=== PATIENT | female | born 1935 | race Caucasian/White ===

== ENCOUNTER 2016-10-10 21:43 | Inpatient (IN) | payer OTHER, BC ==
[~2016-10-10] VITALS: Ht 170.2 cm; Wt 40.8 kg
[~2016-10-10 21:43] MED LIST: ARMOUR THYROID120 MG PO; ARMOUR THYROID30 MG PO; BENADRYL ALLERG25 M1 PO; CYMBALTA60 M1 PO; DETROL LA2 MG PO; FAMOTIDINE40 MG PO; FERROUS SULFAT325 M2 PO; HALDOL PO; MEGL PO; METOPROLOL SUCC25 M1 PO; METOPROLOL SUCC50 M2 PO; MOBIC7.5 MG PO; MULTI-VITAMINS1 TAB PO; NAMENDA10 M2 PO; NAMENDA10 M3 PO; PEPCID40 MG PO; TRAMADOL HCL50 MG PO; TYLENOL EXTRA500 M2 PO; XARELTO10 M1 PO; XARELTO20 M1 PO
[2016-10-10 22:32] LABS: BASOPHIL % 0.3 % (0-2); PLATELET COUNT 303 x10^3mcL (130-400); RED CELL DISTRIBUTION WIDTH 13.3 % (11.5-14.5)
[2016-10-10 22:39] LABS: CALCIUM 9.2 mg/dL (8.5-10.1); CARBON DIOXIDE 31.5 mmol/L (21-32); CHLORIDE SERUM 97 mmol/L (98-107); GLUCOSE SERUM 117 mg/dL (74-106); POTASSIUM SERUM 3.7 mmol/L (3.5-5.1); SODIUM SERUM 137 mmol/L (136-145)
[2016-10-10 22:44] LABS: ALBUMIN 3.6 g/dL (3.4-5.0); ALKALINE PHOSPHATASE 103 U/L (46-116); ALT/SGPT 20 U/L (14-59); AMYLASE 88 U/L (25-115); AST/SGOT 17 U/L (15-37); BILIRUBIN TOTAL 0.58 mg/dL (0.20-1.00); LIPASE 282 IU/L (73-393); TOTAL PROTEIN, SERUM 7.4 g/dL (6.4-8.2)
[2016-10-10 23:20] LABS: CK-MB 1.6 ng/mL (0-3.6)
[2016-10-10] MEDS ORDERED: NAMENDA10 M2 PO (23:25)
[2016-10-10] MEDS ORDERED: FAMOTIDINE40 MG PO (23:25)
[2016-10-10] MEDS ORDERED: TOPROL XL25 MG PO (23:25)
[2016-10-10] MEDS ORDERED: HALDOL DECA100 MG/ML IM (23:26)
[2016-10-10] MEDS ORDERED: ARMOUR THYROID30 MG PO (23:26)
[2016-10-10] MEDS ORDERED: OXYBUTYNIN CHLO10 MG PO (23:26)
[2016-10-10] MEDS ORDERED: CYMBALTA60 M1 PO (23:27)
[2016-10-11 00:17] VITALS: BP 132/65
[2016-10-11 00:21] VITALS: BP 132/65
[2016-10-11] MEDS ORDERED: MOM PO (00:56)
[2016-10-11 01:13] LABS: T3 TOTAL 1.06 ng/mL
[2016-10-11 01:17] LABS: MAGNESIUM 2.4 mg/dL (1.8-2.4); PHOSPHOROUS 3.9 mg/dL (2.5-4.9)
[2016-10-11 01:25] LABS: CHOLESTEROL/HDL RATIO 1.9
[2016-10-11 01:28] LABS: FREE T4 0.99 ng/dL (0.76-1.46); FREE THYROXINE INDEX 2.6 ug/dL (1.4-4.5); T4(THYROXINE) 7.7 ug/dL (4.7-13.3)
[2016-10-11 06:06] VITALS: BP 147/69
[2016-10-11 07:06] LABS: BASOPHIL % 0.3 % (0-2); PLATELET COUNT 294 x10^3mcL (130-400); RED CELL DISTRIBUTION WIDTH 13.6 % (11.5-14.5)
[2016-10-11 07:22] LABS: CALCIUM 8.2 mg/dL (8.5-10.1); CARBON DIOXIDE 27.9 mmol/L (21-32); CHLORIDE SERUM 101 mmol/L (98-107); CREATININE SERUM 0.8 mg/dL (0.6-1.0); GLUCOSE SERUM 87 mg/dL (74-106); MAGNESIUM 2.2 mg/dL (1.8-2.4); POTASSIUM SERUM 4.3 mmol/L (3.5-5.1); SODIUM SERUM 135 mmol/L (136-145)
[2016-10-11 08:32] VITALS: BP 151/61
[2016-10-11 13:05] VITALS: BP 127/49
[2016-10-11 23:10] VITALS: BP 115/52
[2016-10-12 05:37] VITALS: BP 113/62
[2016-10-12 07:01] LABS: BASOPHIL % 0.4 % (0-2); PLATELET COUNT 210 x10^3mcL (130-400); RED CELL DISTRIBUTION WIDTH 13.3 % (11.5-14.5)
[2016-10-12 07:32] LABS: CARBON DIOXIDE 20.6 mmol/L (21-32); CHLORIDE SERUM 108 mmol/L (98-107); CREATININE SERUM 0.7 mg/dL (0.6-1.0); GLUCOSE SERUM 82 mg/dL (74-106); POTASSIUM SERUM 3.9 mmol/L (3.5-5.1); SODIUM SERUM 136 mmol/L (136-145)
[2016-10-12 10:20] VITALS: BP 138/73
[2016-10-12 13:58] VITALS: BP 120/64
[2016-10-12 17:55] VITALS: BP 131/71
[2016-10-12 22:00] VITALS: BP 146/76
[2016-10-13 05:34] VITALS: BP 135/64
[2016-10-13 07:30] LABS: BASOPHIL % 0.6 % (0-2); PLATELET COUNT 237 x10^3mcL (130-400)
[2016-10-13 08:00] LABS: CALCIUM 8.6 mg/dL (8.5-10.1); CHLORIDE SERUM 102 mmol/L (98-107); CREATININE SERUM 0.6 mg/dL (0.6-1.0); GLUCOSE SERUM 83 mg/dL (74-106); POTASSIUM SERUM 3.4 mmol/L (3.5-5.1); SODIUM SERUM 134 mmol/L (136-145)
[2016-10-13 09:18] VITALS: BP 156/68
[2016-10-13] MEDS ORDERED: METOPROLOL TART25 M1 PO (11:07)
[2016-10-13] MEDS ORDERED: OMEPRAZOLE20 M4 PO (11:07)
[2016-10-13] MEDS ORDERED: ARMOUR THYROID30 MG PO (11:07)
[2016-10-13] MEDS ORDERED: MOM PO (11:07)
[2016-10-13 17:10] VITALS: BP 134/72
[2016-10-13 22:54] VITALS: BP 131/69
[2016-10-14 05:35] VITALS: BP 148/82
[2016-10-14 07:10] LABS: BASOPHIL % 0.4 % (0-2); PLATELET COUNT 274 x10^3mcL (130-400)
[2016-10-14 10:19] VITALS: BP 124/63
[2016-10-14 14:51] VITALS: BP 124/63
== END 2016-10-14 15:50 | DRG 368 ==
LOC: ED 21:43 → MU 23:03 → DU 23:03 → MU 10-13 04:54
PROVIDERS: Emergency Medicine; Family Medicine; Internal Medicine Gastroenterology; ADMIT Family Medicine
PROC: 0DB68ZX Excision of Stomach, Via Natural or Artificial Opening Endoscopic, Diagnostic (ICD-10-PCS; principal; 2016-10-11 12:00)
DX: K22.6 Gastro-esophageal laceration-hemorrhage syndrome (principal); N17.0 Acute kidney failure with tubular necrosis; Z68.1 Body mass index [BMI] 19.9 or less, adult; K44.9 Diaphragmatic hernia without obstruction or gangrene; G30.9 Alzheimer's disease, unspecified; F02.80 Dementia in other diseases classified elsewhere, unspecified severity, without behavioral disturbance, psychotic disturbance, mood disturbance, and anxiety; E87.6 Hypokalemia; K21.9 Gastro-esophageal reflux disease without esophagitis; M19.90 Unspecified osteoarthritis, unspecified site; E03.9 Hypothyroidism, unspecified; Z66 Do not resuscitate; Z96.651 Presence of right artificial knee joint; Z85.3 Personal history of malignant neoplasm of breast; Z90.11 Acquired absence of right breast and nipple
CPT/HCPCS: 43235; 83880; 84439; J1200; J1610; J2250; J2310; J2405; J2765; J3010; J3490; J7030; J7040

== ENCOUNTER 2017-09-10 20:49 | Inpatient (IN) | payer OTHER, BC ==
[~2017-09-10] VITALS: Ht 170.2 cm; Wt 47.7 kg
[~2017-09-10 20:49] MED LIST changes: +HALDOL DECA100 MG/ML IM; +METOPROLOL TART25 M1 PO; +MOM PO; +OMEPRAZOLE20 M4 PO; +OXYBUTYNIN CHLO10 MG PO; +TOPROL XL25 MG PO
[2017-09-10 22:17] LABS: BASOPHIL % 0.1 % (0-2); PLATELET COUNT 356 x10^3mcL (130-400); RED CELL DISTRIBUTION WIDTH 14.5 % (11.5-14.5)
[2017-09-10 22:26] LABS: CARBON DIOXIDE 30.5 mmol/L (21-32); CHLORIDE SERUM 98 mmol/L (98-107); GLUCOSE SERUM 79 mg/dL (74-106); POTASSIUM SERUM 3.7 mmol/L (3.5-5.1); SODIUM SERUM 139 mmol/L (136-145)
[2017-09-10 22:30] LABS: ALKALINE PHOSPHATASE 117 U/L (46-116); AST/SGOT 16 U/L (15-37); BILIRUBIN TOTAL 0.32 mg/dL (0.20-1.00); LIPASE 270 IU/L (73-393); MAGNESIUM 2.2 mg/dL (1.8-2.4)
[2017-09-10 22:32] LABS: ALBUMIN 3.2 g/dL (3.4-5.0)
[2017-09-10 22:33] LABS: ALT/SGPT 6 U/L (14-59)
[2017-09-10] MEDS ORDERED: DUL10S RC (22:59)
[2017-09-10] MEDS ORDERED: CLARITIN10 MG PO (23:00)
[2017-09-10] MEDS ORDERED: SENNA8.6 MG PO (23:01)
[2017-09-11 00:55] LABS: UA SPECIFIC GRAVITY 1.025 (1.005-1.035); microscopic required? YES; urine erythrocyte NEGATIVE (NEGATIVE)
[2017-09-11 02:11] LABS: PHOSPHOROUS 4.2 mg/dL (2.5-4.9)
[2017-09-11 02:12] LABS: CHOLESTEROL/HDL RATIO 2.1
[2017-09-11 02:45] VITALS: BP 125/62
[2017-09-11 06:12] VITALS: BP 128/61
[2017-09-11 07:32] LABS: BASOPHIL % 0.3 % (0-2); PLATELET COUNT 286 x10^3mcL (130-400); RED CELL DISTRIBUTION WIDTH 14.6 % (11.5-14.5)
[2017-09-11 07:48] LABS: CALCIUM 8.9 mg/dL (8.5-10.1); CARBON DIOXIDE 27.2 mmol/L (21-32); CHLORIDE SERUM 103 mmol/L (98-107); CREATININE SERUM 0.8 mg/dL (0.6-1.0); GLUCOSE SERUM 89 mg/dL (74-106); POTASSIUM SERUM 4.6 mmol/L (3.5-5.1); SODIUM SERUM 137 mmol/L (136-145)
[2017-09-11 08:21] LABS: FREE T4 0.99 ng/dL (0.76-1.46); FREE THYROXINE INDEX 1.8 ug/dL (1.4-4.5)
[2017-09-11 08:26] LABS: T3 TOTAL 0.81 ng/mL
[2017-09-11 09:56] VITALS: BP 106/52
[2017-09-11 12:57] VITALS: BP 137/67
[2017-09-11 17:49] VITALS: BP 132/55
[2017-09-11 21:06] VITALS: BP 129/66
[2017-09-12 05:30] VITALS: BP 144/66
[2017-09-12 07:53] LABS: BASOPHIL % 0.2 % (0-2); PLATELET COUNT 266 x10^3mcL (130-400); RED CELL DISTRIBUTION WIDTH 14.3 % (11.5-14.5)
[2017-09-12 08:25] LABS: ALKALINE PHOSPHATASE 100 U/L (46-116); ALT/SGPT 19 U/L (14-59); AST/SGOT 18 U/L (15-37); BILIRUBIN TOTAL 0.35 mg/dL (0.20-1.00); CALCIUM 8.3 mg/dL (8.5-10.1); CARBON DIOXIDE 25.4 mmol/L (21-32); CHLORIDE SERUM 106 mmol/L (98-107); CREATININE SERUM 0.7 mg/dL (0.6-1.0); GLUCOSE SERUM 89 mg/dL (74-106); POTASSIUM SERUM 4.1 mmol/L (3.5-5.1); SODIUM SERUM 136 mmol/L (136-145)
[2017-09-12 08:59] LABS: ALBUMIN 2.9 g/dL (3.4-5.0); TOTAL PROTEIN, SERUM 6.1 g/dL (6.4-8.2)
[2017-09-12 09:29] VITALS: BP 137/50
[2017-09-12 14:07] VITALS: BP 119/80
[2017-09-12] MEDS ORDERED: KEFLEX500 M1 PO (15:40)
[2017-09-12] MEDS ORDERED: CYMBALTA30 M1 PO (15:52)
[2017-09-12 15:58] VITALS: BP 119/80
== END 2017-09-12 16:36 | DRG 871 ==
LOC: ED 20:49 → MU 09-11 00:12
PROVIDERS: Emergency Medicine; Internal Medicine; Internal Medicine Gastroenterology
PROC: 0DJ08ZZ Inspection of Upper Intestinal Tract, Via Natural or Artificial Opening Endoscopic (ICD-10-PCS; principal; 2017-09-11 09:30)
DX: A41.9 Sepsis, unspecified organism (principal); N17.0 Acute kidney failure with tubular necrosis; G93.41 Metabolic encephalopathy; N39.0 Urinary tract infection, site not specified; K92.1 Melena; D62 Acute posthemorrhagic anemia; E44.0 Moderate protein-calorie malnutrition; Z68.1 Body mass index [BMI] 19.9 or less, adult; R65.20 Severe sepsis without septic shock; K56.41 Fecal impaction; K44.9 Diaphragmatic hernia without obstruction or gangrene; I48.2 Chronic atrial fibrillation; G30.9 Alzheimer's disease, unspecified; F02.80 Dementia in other diseases classified elsewhere, unspecified severity, without behavioral disturbance, psychotic disturbance, mood disturbance, and anxiety; F32.9 Major depressive disorder, single episode, unspecified
CPT/HCPCS: 43235; 83880; 84439; 87046; 87046-59; C9113; J0696; J1200; J1610; J2250; J2310; J2405; J2765; J3010; J3490; J7030

== ENCOUNTER 2017-11-30 15:16 | Inpatient (IN) | payer OTHER, BC ==
[~2017-11-30] VITALS: Ht 170.2 cm; Wt 47.9 kg
[~2017-11-30 15:16] MED LIST changes: +CLARITIN10 MG PO; +CYMBALTA30 M1 PO; +DUL10S RC; +KEFLEX500 M1 PO; +SENNA8.6 MG PO
[2017-11-30 17:01] LABS: CALCIUM 7.8 mg/dL (8.5-10.1); CARBON DIOXIDE 24.2 mmol/L (21-32); CHLORIDE SERUM 102 mmol/L (98-107); CREATININE SERUM 0.9 mg/dL (0.6-1.0); GLUCOSE SERUM 103 mg/dL (74-106); POTASSIUM SERUM 3.9 mmol/L (3.5-5.1); SODIUM SERUM 133 mmol/L (136-145)
[2017-11-30 17:10] LABS: ALKALINE PHOSPHATASE 90 U/L (46-116); AST/SGOT 483 U/L (15-37); BILIRUBIN TOTAL 0.5 mg/dL (0.20-1.00); TOTAL PROTEIN, SERUM 6.4 g/dL (6.4-8.2)
[2017-11-30 17:26] LABS: BASOPHIL % 0.3 % (0-2); PLATELET COUNT 258 x10^3mcL (130-400)
[2017-11-30 17:31] LABS: ALBUMIN 2.9 g/dL (3.4-5.0); RED CELL DISTRIBUTION WIDTH 16.1 % (11.5-14.5)
[2017-11-30 17:32] LABS: ALT/SGPT 1079 U/L (14-59)
[2017-11-30 19:39] LABS: FREE T4 1.23 ng/dL (0.76-1.46); FREE THYROXINE INDEX 2.4 ug/dL (1.4-4.5); T3 TOTAL 0.73 ng/mL; T4(THYROXINE) 7.2 ug/dL (4.7-13.3)
[2017-11-30 19:51] LABS: MAGNESIUM 2.2 mg/dL (1.8-2.4); PHOSPHOROUS 3.1 mg/dL (2.5-4.9)
[2017-11-30 19:52] LABS: CHOLESTEROL/HDL RATIO 2.1
[2017-11-30 20:01] VITALS: BP 118/55
[2017-11-30 20:23] LABS: UA SPECIFIC GRAVITY 1.025 (1.005-1.035); microscopic required? YES; urine erythrocyte 2+ (NEGATIVE)
[2017-11-30 20:35] LABS: AMPHETAMINE QUAL UR NONE DETECTED (See below)
[2017-11-30 21:25] VITALS: BP 162/83
[2017-11-30] MEDS ORDERED: TRAMADOL HCL50 MG PO (21:43)
[2017-11-30] MEDS ORDERED: METOPROLOL TART25 M1 PO (21:43)
[2017-11-30] MEDS ORDERED: HALOPERIDOL5 MG PO (21:44)
[2017-11-30 21:45] VITALS: BP 151/77
[2017-12-01 00:57] LABS: TOTAL IRON BINDING CAPACITY 311 ug/dL (250-450)
[2017-12-01 00:59] LABS: IRON 11 ug/dL (50-170)
[2017-12-01 06:55] LABS: CALCIUM 8.1 mg/dL (8.5-10.1); CARBON DIOXIDE 24.8 mmol/L (21-32); CHLORIDE SERUM 105 mmol/L (98-107); CREATININE SERUM 0.8 mg/dL (0.6-1.0); GLUCOSE SERUM 96 mg/dL (74-106); MAGNESIUM 1.8 mg/dL (1.8-2.4); POTASSIUM SERUM 3.4 mmol/L (3.5-5.1); SODIUM SERUM 140 mmol/L (136-145)
[2017-12-01 07:19] LABS: BASOPHIL % 0.5 % (0-2); PLATELET COUNT 231 x10^3mcL (130-400)
[2017-12-01 07:35] VITALS: BP 112/61
[2017-12-01 11:10] VITALS: BP 102/76
[2017-12-01 15:30] VITALS: BP 115/60
[2017-12-01 18:16] VITALS: BP 156/82
[2017-12-01 21:01] VITALS: BP 144/84
[2017-12-01 22:11] LABS: RED BLOOD CELLS 2.45 M/mm3 (4.10-5.10)
[2017-12-01 23:10] VITALS: Ht 170.2 cm; Wt 47.9 kg
[2017-12-02 05:51] VITALS: BP 126/73
[2017-12-02 06:08] LABS: CALCIUM 7.5 mg/dL (8.5-10.1); CARBON DIOXIDE 24.2 mmol/L (21-32); CHLORIDE SERUM 110 mmol/L (98-107); CREATININE SERUM 0.7 mg/dL (0.6-1.0); GLUCOSE SERUM 90 mg/dL (74-106); MAGNESIUM 1.8 mg/dL (1.8-2.4); PHOSPHOROUS 2.6 mg/dL (2.5-4.9); POTASSIUM SERUM 3.5 mmol/L (3.5-5.1); SODIUM SERUM 142 mmol/L (136-145)
[2017-12-02 06:16] LABS: BASOPHIL % 0.2 % (0-2); PLATELET COUNT 222 x10^3mcL (130-400)
[2017-12-02 08:20] LABS: RED CELL DISTRIBUTION WIDTH 17.6 % (11.5-14.5)
[2017-12-02 09:22] VITALS: BP 109/40
[2017-12-02 10:22] VITALS: BP 94/53
[2017-12-02 17:42] VITALS: BP 86/50
[2017-12-02 20:23] VITALS: BP 132/63
[2017-12-03 06:46] VITALS: BP 139/77
[2017-12-03 11:30] VITALS: BP 155/79
== END 2017-12-03 15:20 | DRG 280 ==
LOC: ED 15:16 → DU 18:06 → MU 18:06 → IC 18:06 → DU 19:19 → IC 12-01 05:51 → DU 12-01 17:42 → MU 12-01 18:03
PROVIDERS: Emergency Medicine; Internal Medicine
DX: I21.4 Non-ST elevation (NSTEMI) myocardial infarction (principal); N17.0 Acute kidney failure with tubular necrosis; I50.33 Acute on chronic diastolic (congestive) heart failure; S72.451A Displaced supracondylar fracture without intracondylar extension of lower end of right femur, initial encounter for closed fracture; N39.0 Urinary tract infection, site not specified; E87.1 Hypo-osmolality and hyponatremia; M62.82 Rhabdomyolysis; I48.2 Chronic atrial fibrillation; R80.9 Proteinuria, unspecified; G30.9 Alzheimer's disease, unspecified; F02.80 Dementia in other diseases classified elsewhere, unspecified severity, without behavioral disturbance, psychotic disturbance, mood disturbance, and anxiety; R74.0 Nonspecific elevation of levels of transaminase and lactic acid dehydrogenase [LDH]; D64.9 Anemia, unspecified; Z66 Do not resuscitate; Z99.3 Dependence on wheelchair; Z96.651 Presence of right artificial knee joint; Z68.25 Body mass index [BMI] 25.0-25.9, adult; Z85.3 Personal history of malignant neoplasm of breast; X58.XXXA Exposure to other specified factors, initial encounter; Y92.128 Other place in nursing home as the place of occurrence of the external cause
CPT/HCPCS: 83880; 84439; 92610-GN; J0282; J0696; J1940; J3490; J7030; J7050; P9016; Q0092; Q0163